=== PATIENT | male | born 1980 | race Caucasian/White ===

== ENCOUNTER 2024-11-07 12:28 | Emergency (ER) | payer OTHER ==
[2024-11-07] MEDS ORDERED: Lidocaine 1% (PF) 30 ML VIAL ONE (14:05)
[2024-11-07] MEDS ORDERED: Boostrix 0.5 ML (Tdap) VIAL (>/=7 yrs of age) ONE (14:05)
[2024-11-07] MEDS ORDERED: Bacitracin 1 PK ONE (14:50)
== END 2024-11-07 15:16 | disposition home or self-care (01) ==
LOC: CSHERS 12:28
DX: S61.012A Laceration without foreign body of left thumb without damage to nail, initial encounter (principal); F17.210 Nicotine dependence, cigarettes, uncomplicated; Z23 Encounter for immunization; W27.8XXA Contact with other nonpowered hand tool, initial encounter
CPT/HCPCS: 12002; 90471; 90715

== ENCOUNTER 2024-11-21 14:02 | Emergency (ER) | payer OTHER | END 2024-11-21 14:58 | disposition home or self-care (01) | LOC: CSHERS 14:02 | DX: S61.012A Laceration without foreign body of left thumb without damage to nail, initial encounter (principal); F17.210 Nicotine dependence, cigarettes, uncomplicated; W22.8XXA Striking against or struck by other objects, initial encounter ==